=== PATIENT | female | born 1975 | race Caucasian/White ===

== ENCOUNTER 2018-07-20 10:25 | Emergency (ER) | payer SELFPAY ==
--- NOTE | 2018-07-20 11:06 | EDM.PDOCBH ---
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 Patient was an inpatient at [facility] in [place]. When discharged from there, the patient went to [facility] in [place]. From there she was admitted to [facility] in [place]. Patient has unknown seizure disorder, and has not been taking her Dilantin for some time. Staff from [facility] state the last fill date was May 11, 2018. Patient was not given the Dilantin at [facility] according to [facility] staff. Patient has not had any seizure activity noted by staff. Over the past weeks the patient has had a continued decline of mental health, with staff noting inappropriate bathrooming, erratic behavior, jumbled, inappropriate speech. Patient does have some paranoia. Today patient states "no " when asked if she hurts anywhere or if she is sick. Staff from [facility] would like Clozapine to be increased but is very concerned that with an untreated seizure disorder, this will induce seizures. Patient currently takes Buspar for anxiety and Clozapine for Schizophrenia. They would like assistance with inpatient placement and transportation to [facility]. Onset: Gradual - Related Data Allergies Allergy/AdvReac Type Severity Reaction Status Date / Time No Known Allergies Allergy Verified 07/20/18 11:22 Home Meds: Home Meds busPIRone HCl [Buspirone HCl] 7.5 mg PO BID 07/20/18 [History] cloZAPine 125 mg PO BID 07/20/18 [History] ED ROS GENERAL - Review of Systems Review Of Systems: ROS reveals no pertinent complaints other than HPI. ED EXAM, BEHAVIORAL HEALTH - Physical Exam Exam: See Below Exam Limited By: Altered Mental Status General Appearance: Alert, No Apparent Distress, Anxious Eye Exam: Bilateral Eye: EOMI, Normal Inspection Ears: Normal External Exam, Hearing Grossly Normal Nose: Normal Inspection Throat/Mouth: Normal Inspection, Normal Voice, No Airway Compromise Head: Atraumatic, Normocephalic Neck: Normal Inspection, Supple, Non-Tender, Full Range of Motion Respiratory/Chest: No Respiratory Distress, Lungs Clear, Normal Breath Sounds, No Accessory Muscle Use, Chest Non-Tender Cardiovascular: Normal Peripheral Pulses, Regular Rate, Rhythm, No Edema, No Gallop, No JVD, No Murmur, No Rub GI/Abdominal: Normal Bowel Sounds, Soft, Non-Tender, No Organomegaly, No Distention, No Abnormal Bruit, No Mass, Pelvis Stable (Female) Exam: Deferred Rectal (Female) Exam: Deferred Back Exam: Normal Inspection, Full Range of Motion Extremities: Normal Inspection, Normal Range of Motion, Non-Tender, No Pedal Edema, Normal Capillary Refill Neurological: Alert, Normal Gait, Inattentive Psychiatric: Alert, Inattentive, Flight of Ideas, Paranoid Thoughts, Other ( inappropriate words used when answering questions) Skin Exam: Warm, Dry, Intact, Normal color, No rash COURSE, BEHAVIORAL HEALTH COMP - Course Vital Signs: Last Vital Signs Temp 98.5 F 07/20/18 10:41 Pulse 83 07/20/18 10:41 Resp 16 07/20/18 10:41 BP 143/85 H 07/20/18 10:41 Pulse Ox 97 07/20/18 10:41 Orders, Labs, Meds: Laboratory Tests 07/20/18 07/20/18 07/20/18 Range/Units 11:09 11:09 11:37 WBC 7.2 (5.0-10.0) 10^3/uL RBC 4.25 (4.2-5.4) 10^6/uL Hgb 11.3 L (12.0-16.0) g/dL Hct 34.8 L (37.0-47.0) % MCV 81.9 (80-100) fL MCH 26.6 L (27.0-34.0) pg MCHC 32.5 L (33.0-35.0) g/dL Plt Count 489 H (150-450) 10^3/uL Neut % (Auto) 66.1 (42.2-75.2) % Lymph % (Auto) 25.5 (20.5-50.1) % [place] % (Auto) 5.6 (2-8) % Eos % (Auto) 2.2 (1.0-3.0) % Baso % (Auto) 0.6 (0.0-1.0) % Sodium 132 L (135-145) mmol/L Potassium 4.0 (3.6-5.0) mmol/L Chloride 100 L (101-111) mmol/L Carbon Dioxide 23.0 (21.0-31.0) mmol/L Anion Gap 13.0 BUN 12 (7-18) mg/dL Creatinine 0.6 (0.6-1.3) mg/dL Est Cr Clr Drug Dosing TNP Estimated GFR (MDRD) > 60 BUN/Creatinine Ratio 20.00 Glucose 84 (74-105) mg/dL Calcium 8.8 (8.4-10.2) mg/dl Total Bilirubin 0.4 (0.2-1.0) mg/dL AST 20 (10-42) IU/L ALT 14 (10-60) IU/L Alkaline Phosphatase 76 (42-121) IU/L Total Protein 7.7 (6.7-8.2) g/dl Albumin 3.8 (3.2-5.5) g/dl Globulin 3.9 Albumin/Globulin Ratio 0.97 Urine Color Yellow (YELLOW) Urine Appearance Clear (CLEAR) Urine pH 7.0 (5.0-9.0) Ur Specific [place] 1.015 (1.005-1.030) Urine Protein Negative (NEGATIVE) Urine Glucose (UA) Negative (NEGATIVE) Urine Ketones Negative (NEGATIVE) Urine Occult Blood Negative (NEGATIVE) Urine Nitrite Negative (NEGATIVE) Urine Bilirubin Negative (NEGATIVE) Urine Urobilinogen 0.2 (0.2-1.0) mg/dL Ur Leukocyte Esterase Negative (NEGATIVE) Urine HCG, Qual Salicylates < 4 mg/dL Urine Opiates Screen (NEGATIVE) Ur Oxycodone Screen (NEGATIVE) Urine Methadone Screen (NEGATIVE) Acetaminophen < 10 ug/mL Ur Barbiturates Screen (NEGATIVE) U Tricyclic Antidepress (NEGATIVE) Ur Phencyclidine Scrn (NEGATIVE) Ur Amphetamine Screen (NEGATIVE) U Methamphetamines Scrn (NEGATIVE) Urine MDMA Screen (NEGATIVE) U Benzodiazepines Scrn (NEGATIVE) Urine Cocaine Screen (NEGATIVE) U Marijuana (THC) Screen (NEGATIVE) Ethyl Alcohol < 5 mg/dL 07/20/18 07/20/18 Range/Units 11:37 11:37 WBC (5.0-10.0) 10^3/uL RBC (4.2-5.4) 10^6/uL Hgb (12.0-16.0) g/dL Hct (37.0-47.0) % MCV (80-100) fL MCH (27.0-34.0) pg MCHC (33.0-35.0) g/dL Plt Count (150-450) 10^3/uL Neut % (Auto) (42.2-75.2) % Lymph % (Auto) (20.5-50.1) % [place] % (Auto) (2-8) % Eos % (Auto) (1.0-3.0) % Baso % (Auto) (0.0-1.0) % Sodium (135-145) mmol/L Potassium (3.6-5.0) mmol/L Chloride (101-111) mmol/L Carbon Dioxide (21.0-31.0) mmol/L Anion Gap BUN (7-18) mg/dL Creatinine (0.6-1.3) mg/dL Est Cr Clr Drug Dosing Estimated GFR (MDRD) BUN/Creatinine Ratio Glucose (74-105) mg/dL Calcium (8.4-10.2) mg/dl Total Bilirubin (0.2-1.0) mg/dL AST (10-42) IU/L ALT (10-60) IU/L Alkaline Phosphatase (42-121) IU/L Total Protein (6.7-8.2) g/dl Albumin (3.2-5.5) g/dl Globulin Albumin/Globulin Ratio Urine Color (YELLOW) Urine Appearance (CLEAR) Urine pH (5.0-9.0) Ur Specific [place] (1.005-1.030) Urine Protein (NEGATIVE) Urine Glucose (UA) (NEGATIVE) Urine Ketones (NEGATIVE) Urine Occult Blood (NEGATIVE) Urine Nitrite (NEGATIVE) Urine Bilirubin (NEGATIVE) Urine Urobilinogen (0.2-1.0) mg/dL Ur Leukocyte Esterase (NEGATIVE) Urine HCG, Qual Negative Salicylates mg/dL Urine Opiates Screen Negative (NEGATIVE) Ur Oxycodone Screen Negative (NEGATIVE) Urine Methadone Screen Negative (NEGATIVE) Acetaminophen ug/mL Ur Barbiturates Screen Negative (NEGATIVE) U Tricyclic Antidepress Negative (NEGATIVE) Ur Phencyclidine Scrn Negative (NEGATIVE) Ur Amphetamine Screen Negative (NEGATIVE) U Methamphetamines Scrn Negative (NEGATIVE) Urine MDMA Screen Negative (NEGATIVE) U Benzodiazepines Scrn Negative (NEGATIVE) Urine Cocaine Screen Negative (NEGATIVE) U Marijuana (THC) Screen Negative (NEGATIVE) Ethyl Alcohol mg/dL Medications Discontinued Medications Generic Name Dose Route Start Last Admin Trade Name Redd PRN Reason Stop Dose Admin Phenytoin Sodium Confirm 07/20/18 14:57 Phenytoin Administered 07/20/18 14:58 Dose 300 mg .ROUTE .STK-MED ONE Re-Assessment/Re-Exam: Patient declined by [facility] psychiatry at this time due to lack of beds. Discussed other options with staff from [facility]. Dr. Sweet was called, who then called KIYA Pan at [facility]. It was decided that the patient could be discharged with staff from the [facility] to the [facility] with a prescription to re-start Dilantin, and an attempt to be admitted to [facility] would happen tomorrow. Departure - Departure Time of Disposition: 14:57 Disposition: DC/Tfer to Other Condition: Fair Clinical Impression: Seizure disorder, Hallucination Schizophrenia Qualifiers: Schizophrenia type: other Qualified Code(s): F20.89 - Other schizophrenia - Discharge Information *PRESCRIPTION DRUG MONITORING PROGRAM REVIEWED*: No *COPY OF PRESCRIPTION DRUG MONITORING REPORT IN PATIENT MARITA: No Referrals: PCP,None [Primary Care Provider] - Forms: ED Department Discharge Additional Instructions: Follow up with psychiatry in [facility] Take medications as prescribed
[2018-07-20 11:36] LABS: CHLORIDE,CL 100 mmol/L (101-111); SODIUM,NA 132 mmol/L (135-145)
[2018-07-20 11:37] LABS: ACETAMINOPHEN < 10 ug/mL
[2018-07-20] MEDS ORDERED: Phenytoin 100 MG Cap.ER ONE (14:57)
== END 2018-07-20 15:11 | disposition other institution (70) ==
LOC: DL.ED 10:25
DX: G40.909 Epilepsy, unspecified, not intractable, without status epilepticus (principal); F20.89 Other schizophrenia
CPT/HCPCS: 36415; 80053; 80305-QW; 81003; 81025; 85025; 99283; G0480